=== PATIENT | female | born 1975 | race Caucasian/White ===

== ENCOUNTER 2020-07-07 15:47 | Inpatient (IN) | payer MEDICARE, OTHER ==
[~2020-07-07] VITALS: Ht 175.3 cm; Wt 115.7 kg
--- NOTE | 2020-07-07 16:00 | NUR ---
Patient bibpa, from snf, c/o abd pain, fever and vomiting. On room air, breathing evenly and unlabored. Connected to the monitor and pulse ox. Kept comfortable, will continue to monitor accordingly.
--- NOTE | 2020-07-07 16:24 | NUR ---
IV access initiated and blood drawned and sent to lab.
[2020-07-07] MEDS ORDERED: ACETAMINOPHEN 325 MG TABLET ONE (16:29)
[2020-07-07] MEDS ORDERED: ACETAMINOPHEN 325 MG TABLET PO ONE (16:30)
[2020-07-07 16:33] LABS: BASOPHILS % (AUTO) 0.3 % (0.0-2.0); EOSINOPHILS % (AUTO) 0.2 % (0.0-6.0); HEMATOCRIT 42 % (33-45); HEMOGLOBIN 13.9 g/dL (11.5-14.8); LYMPHOCYTES % (AUTO) 17.1 % (20.0-44.0); MEAN CORPUSCULAR HGB CONC 33 g/dl (31.0-36.0); MEAN CORPUSCULAR VOLUME 85 fL (82-100); MONOCYTES # (AUTO) 0.6 /CMM (0.1-1.30); MONOCYTES % (AUTO) 5.5 % (2.0-12.0); NEUTROPHILS # (AUTO) 8.8 /CMM (1.8-8.9); NEUTROPHILS % (AUTO) 76.9 % (43.0-81.0); PLATELET COUNT (AUTO) 225 /CMM (150-450); RED BLOOD CELL COUNT(AUTO) 4.93 MIL/uL (4.0-5.2); WHITE BLOOD COUNT (AUTO) 11.5 K/uL (4.3-11.0)
--- NOTE | 2020-07-07 16:39 | NUR ---
urine collected sent to lab. covid swab done sent to lab
[2020-07-07 16:55] LABS: BILIRUBIN,URINE NEGATIVE (NEGATIVE); BLOOD, URINE TRACE Ery/uL (NEGATIVE); COLOR,URINE YELLOW (YELLOW); LEUKOCYTE ESTERASE ,URINE NEGATIVE (NEGATIVE); NITRITE, URINE NEGATIVE (NEGATIVE); PROTEIN,URINE NEGATIVE (NEGATIVE); UGLUCOSE NEGATIVE (NEGATIVE); UROBILINOGEN,URINE 0.2 EU/dL (0.2)
[2020-07-07 16:57] LABS: CALCIUM, SERUM 9.3 mg/dL (8.5-10.1); CARBON DIOXIDE 27 mmol/L (21-32); CHLORIDE 95 mmol/L (98-107); CREATININE 0.8 mg/dL (0.6-1.3); GLUCOSE 96 mg/dL (74-106); POTASSIUM 4.2 mmol/L (3.5-5.1); SODIUM SERUM 131 mmol/L (136-145); UREA NITROGEN, BLOOD 16 mg/dL (7-18)
[2020-07-07 17:03] LABS: ALANINE AMINOTRANSFERASE 16 U/L (12-78); ALBUMIN 3.5 g/dL (3.4-5.0); ALKALINE PHOSPHATASE 78 U/L (46-116); ASPARTATE AMINOTRANSFERASE 13 U/L (15-37); BILIRUBIN,DIRECT 0.1 mg/dL (0.0-0.2); BILIRUBIN,TOTAL 0.3 mg/dL (0.2-1.0); TOTAL PROTEIN, SERUM 7.6 g/dL (6.4-8.2)
[2020-07-07 17:17] LABS: BACTERIA,URINE Rare /HPF (None Seen); RBC,URINE 0-2 /HPF (0-2); SQUAMOUS EPITHELIAL CELL,UR Few /HPF (None Seen); WBC,URINE 0-2 /HPF (0-3)
[2020-07-07] MEDS ORDERED: IV NS 0.9% 1,000 ML BAG IV ONE (17:30)
[2020-07-07] MEDS ORDERED: PIPERACILLIN /TAZOBACTAM 3.375 G in IV D5W 50 ML IV ONE (17:30)
[2020-07-07] MEDS ORDERED: ZINC220C6 PO (18:03)
[2020-07-07] MEDS ORDERED: NA P133E RC (18:03)
[2020-07-07] MEDS ORDERED: ASCO-352 PO (18:03)
[2020-07-07] MEDS ORDERED: BISA10SU11 RC (18:03)
[2020-07-07] MEDS ORDERED: DIVA500T2 PO (18:03)
[2020-07-07] MEDS ORDERED: CHOL100040 PO (18:03)
[2020-07-07] MEDS ORDERED: DIPH25CA51 PO (18:03)
[2020-07-07] MEDS ORDERED: LORA-259 PO (18:03)
[2020-07-07] MEDS ORDERED: MAGN400O6 PO (18:03)
[2020-07-07] MEDS ORDERED: OLAN10TA3 PO (18:03)
[2020-07-07] MEDS ORDERED: ACET-868 PO (18:03)
[2020-07-07] MEDS ORDERED: MELA3TAB41 PO (18:03)
--- NOTE | 2020-07-07 18:52 | NUR ---
CALLED NURSING SUP FOR M/S BED.
[2020-07-07] MEDS ORDERED: MAG HYDROX/AL HYDROX/SIMETH 30 ML UDC PO PRN (19:30)
[2020-07-07] MEDS ORDERED: MORPHINE SULFATE INJ 2 MG/ML DISP.SYRIN IV PRN (19:30)
[2020-07-07] MEDS ORDERED: Z GUARD REMEDY 2 OZ OINT TP PRN (19:30)
[2020-07-07] MEDS ORDERED: ACETAMINOPHEN 325 MG TABLET PO PRN (19:30)
[2020-07-07] MEDS ORDERED: HYDROCODONE/APAP 5/325MG TABLET PO PRN (19:30)
[2020-07-07] MEDS ORDERED: IV NS 0.9% 1,000 ML IV PRN (19:30)
[2020-07-07] MEDS ORDERED: MAGNESIUM HYDROXIDE 30 ML UDC PO PRN ×2 (19:30)
[2020-07-07] MEDS ORDERED: NA PHOS,M-B/NA PHOS,DI-BA 1 EA ENEMA RC PRN (19:30)
[2020-07-07] MEDS ORDERED: ONDANSETRON HCL/PF 4 MG/2 ML VIAL IVP PRN (19:30)
[2020-07-07] MEDS ORDERED: LORAZEPAM 1 MG TABLET PO PRN (19:30)
--- NOTE | 2020-07-08 01:01 | NUR ---
CALLED PHARMACY TO VERIFY THE ADMITTING ORDERS
[2020-07-08] MEDS ORDERED: ZOSYN IVPB 3.375 G in IV D5W 50ml IV SCH (01:28)
[2020-07-08] MEDS ORDERED: MORPHINE SULFATE INJ 2 MG/ML DISP.SYRIN ONE (01:29)
[2020-07-08] MEDS ORDERED: LORAZEPAM 1 MG TABLET ONE (01:29)
[2020-07-08] MEDS ORDERED: PIPERACILLIN /TAZOBACTAM 3.375 G VIAL IV ONE (02:42)
[2020-07-08 05:21] LABS: BASOPHILS % (AUTO) 0.4 % (0.0-2.0); EOSINOPHILS % (AUTO) 1.1 % (0.0-6.0); HEMATOCRIT 42 % (33-45); HEMOGLOBIN 13.8 g/dL (11.5-14.8); LYMPHOCYTES # (AUTO) 2.6 /CMM (0.8-4.8); LYMPHOCYTES % (AUTO) 32.2 % (20.0-44.0); MEAN CORPUSCULAR HGB CONC 33 g/dl (31.0-36.0); MEAN CORPUSCULAR VOLUME 86 fL (82-100); MONOCYTES # (AUTO) 0.7 /CMM (0.1-1.30); MONOCYTES % (AUTO) 8.3 % (2.0-12.0); NEUTROPHILS # (AUTO) 4.7 /CMM (1.8-8.9); PLATELET COUNT (AUTO) 194 /CMM (150-450); RED BLOOD CELL COUNT(AUTO) 4.87 MIL/uL (4.0-5.2); WHITE BLOOD COUNT (AUTO) 8.1 K/uL (4.3-11.0)
[2020-07-08 05:44] LABS: ALBUMIN 3.3 g/dL (3.4-5.0); BILIRUBIN,DIRECT 0.1 mg/dL (0.0-0.2); BILIRUBIN,TOTAL 0.2 mg/dL (0.2-1.0); CALCIUM, SERUM 9.2 mg/dL (8.5-10.1); CREATININE 0.7 mg/dL (0.6-1.3); POTASSIUM 4.1 mmol/L (3.5-5.1); TOTAL PROTEIN, SERUM 7.4 g/dL (6.4-8.2)
[2020-07-08] MEDS ORDERED: PIPERACILLIN /TAZOBACTAM 3.375 G in IV D5W 100 ML IV SCH (08:00)
[2020-07-08] MEDS ORDERED: ZINC SULFATE 220 MG CAPSULE PO SCH (09:00)
[2020-07-08] MEDS ORDERED: OLANZAPINE 10 MG TABLET PO SCH (09:00)
[2020-07-08] MEDS ORDERED: DIVALPROEX SODIUM 500 MG TABLET.DR PO SCH (09:00)
--- NOTE | 2020-07-08 09:00 | NUR ---
PATIENT SEEN AND EXAMINED BY CITLALLI. PATIENT A/OX3, BREATHING EVEN AND UNLABORED, NO SOB NOTED. AMBULATORY WITH STEADY GAIT. GIVEN CLEAR LIQUID DIET.
[2020-07-08] MEDS ORDERED: diphenhydrAMINE HCL 50 MG/ML VIAL ONE (09:15)
[2020-07-08] MEDS ORDERED: LORAZEPAM INJ 2 MG/ML VIAL ONE (09:16)
[2020-07-08] MEDS ORDERED: LORAZEPAM INJ 2 MG/ML VIAL IM PRN (09:30)
[2020-07-08] MEDS ORDERED: diphenhydrAMINE HCL 50 MG/ML VIAL IM PRN (09:30)
[2020-07-08] MEDS ORDERED: diphenhydrAMINE HCL 50 MG CAPSULE PO ONE (09:30)
--- NOTE | 2020-07-08 09:30 | NUR ---
PATIENT PULLED OUT HER IV HEPLOCK, BECOMING AGITATED, SCREAMING AND KEEP INSISTING SHE WANTS TO GO HOME. DR. LENNON MADE AWARE.
--- NOTE | 2020-07-08 11:16 | NUR ---
PATIENT REFUSING VITAL SIGNS.
[2020-07-08] MEDS ORDERED: LEVO500T90 PO (11:58)
--- NOTE | 2020-07-08 13:04 | NUR ---
SASHA DEUTSCH CALLED ETA 1400 PER [address].
--- NOTE | 2020-07-08 14:21 | NUR ---
CALL FROM CASE MANAGEMENT: TAMMY GIRALDO,REPORT TO [phone]
--- NOTE | 2020-07-08 14:43 | NUR ---
REPORT GIVEN AUGUSTA GUADALUPE FOR [facility].
--- NOTE | 2020-07-08 14:48 | NUR ---
PATIENT DISCHARGED TO SNF, REPORT GIVEN TO AUGUSTA MCKEON. NO DISTRESS NOTED.
[2020-07-08 14:49] VITALS: BP 140/75
== END 2020-07-08 14:49 | DRG 395 ==
LOC: ER 15:53 → TRANSITION 07-08 01:21
PROVIDERS: ADMIT Internal Medicine; ATTEND Internal Medicine
DX: K46.9 Unspecified abdominal hernia without obstruction or gangrene (principal); I10 Essential (primary) hypertension; J44.9 Chronic obstructive pulmonary disease, unspecified; K21.9 Gastro-esophageal reflux disease without esophagitis; G20 Parkinson's disease; F20.9 Schizophrenia, unspecified; F41.9 Anxiety disorder, unspecified; K52.9 Noninfective gastroenteritis and colitis, unspecified; F29 Unspecified psychosis not due to a substance or known physiological condition
CPT/HCPCS: 36415; 71045-TC; 80048-TC; 80053-TC; 80076-TC; 81001; 83605-TC; 84484-TC; 84703-TC; 85025-TC; 85730-TC; 87040-TC; 87081-TC; 87086-TC; C9803; G0378; J1200; J2060; J2270; J2543; J7030; J7060; Q0163